=== PATIENT | female | born 1995 | race Caucasian/White ===

== ENCOUNTER 2019-11-06 21:45 | Inpatient (IN) | payer MEDICAID ==
[~2019-11-06] VITALS: Ht 152.4 cm; Wt 83.9 kg
[2019-11-06] MEDS ORDERED: TERBUTALINE SULFATE 1 MG/ML VIAL SUBCUT ONE (21:46)
[2019-11-07] MEDS: TERBUTALINE SULFATE 1 MG/ML VIAL SUBCUT PRN ×3 (00:20→00:24)
[2019-11-07] MEDS ORDERED: BETAMET ACET/BETAMET NA PH 30 MG/5 ML VIAL IM SCH (02:00)
[2019-11-07] MEDS ORDERED: DIPHENHYDRAMINE INJ 50 MG/ML VIAL IM ONE (10:00)
[2019-11-07] MEDS ORDERED: LR 1,000 ML IV ONE (17:26)
[2019-11-07] MEDS: LR 1,000 ML IV SCH (17:56)
[2019-11-07] MEDS: OXYTOCIN/0.9 % SODIUM CHLORIDE 1,000 ML IV SCH (17:56)
[2019-11-07 18:07] LABS: HEMATOCRIT 33.8 % (36-48); HEMOGLOBIN 11.3 g/dL (12.0-16.0); LYMPHOCYTES # (AUTO) 1.1 K/uL (1.0-5.5); LYMPHOCYTES % (AUTO) 9.9 % (20.5-51.5); MEAN CORPUSCULAR HEMOGLOBIN 30 pg (27-31); MEAN CORPUSCULAR HGB CONC 33 % (32-36); MEAN CORPUSCULAR VOLUME 89 fL (79.0-98.0); MONOCYTES # (AUTO) 0.3 K/uL (0.0-1.0); MONOCYTES % (AUTO) 2.4 % (1.7-9.3); NEUTROPHILS % (AUTO) 87.7 % (40.0-70.0); PLATELET COUNT (AUTO) 169 K/uL (130-430); RED BLOOD CELL COUNT(AUTO) 3.79 MIL/uL (4.2-6.2); WHITE BLOOD COUNT (AUTO) 11.4 K/uL (4.8-10.8)
[2019-11-07] MEDS ORDERED: AMPICILLIN SODIUM 2 GM in NS 100 ML IV ONE (19:45)
[2019-11-07 20:03] VITALS: BP_SYST 121
[2019-11-07] MEDS ORDERED: AMPICILLIN SODIUM 2 GM VIAL ONE (20:36)
[2019-11-07] MEDS ORDERED: AMPICILLIN SODIUM 1 GM VIAL ONE (23:52)
[2019-11-08] MEDS ORDERED: OXYTOCIN 10 UNIT/ML VIAL IM ONE
[2019-11-08] MEDS: LR 1,000 ML IV SCH (03:00)
[2019-11-08] MEDS ORDERED: AMPICILLIN SODIUM 1 GM VIAL ONE (04:00)
[2019-11-08] MEDS: AMPICILLIN SODIUM 1 GM in NS 50 ML IV SCH ×7 (04:00→19:53)
[2019-11-08] MEDS: MEPERIDINE HCL/PF 50 MG/ML AMP IM PRN ×2 (05:31→18:22)
[2019-11-08] MEDS: OXYTOCIN/0.9 % SODIUM CHLORIDE 1,000 ML IV SCH (17:10)
[2019-11-08] MEDS ORDERED: OXYTOCIN/0.9 % SODIUM CHLORIDE 1,000 ML IV ONE (22:54)
[2019-11-08] MEDS ORDERED: OXYTOCIN/0.9 % SODIUM CHLORIDE 1,000 ML IV SCH (22:54)
[2019-11-08] MEDS ORDERED: SENNOSIDES/DOCUSATE SODIUM 1 TAB TABLET(SENOKOT-S) PO PRN (23:00)
[2019-11-08] MEDS ORDERED: OXYCODONE/ACETAMINOPHEN 5-325 TABLET PO PRN ×2 (23:00)
[2019-11-08] MEDS ORDERED: WITCH HAZEL LEAF 1 MED.PAD MED.PAD TP PRN (23:00)
[2019-11-08] MEDS ORDERED: HYDROCORTISONE 0.5%, 28.35 GM TOPICAL CREAM TP PRN (23:00)
[2019-11-08] MEDS ORDERED: LANOLIN 7 GM OINT. TP PRN (23:00)
[2019-11-08] MEDS ORDERED: DERMOPLAST SPRAY TP PRN (23:00)
[2019-11-08] MEDS ORDERED: METHYLERGONOVINE MALEATE 0.2 MG TABLET PO PRN (23:00)
[2019-11-09] MEDS: IBUPROFEN 600 MG TABLET PO SCH ×4 (00:30→18:12)
[2019-11-09] MEDS: HYDROcodone/ACETAMIN 5-325 MG TAB (NORCO/ VICODIN) PO PRN ×3 (04:16→13:15)
[2019-11-09] MEDS: DOCUSATE SODIUM 100 MG CAPSULE PO PRN (05:39)
[2019-11-09 06:52] LABS: BASOPHILS % (AUTO) 0.1 % (0.0-2.0); HEMATOCRIT 29.6 % (36-48); HEMOGLOBIN 9.8 g/dL (12.0-16.0); LYMPHOCYTES # (AUTO) 2.1 K/uL (1.0-5.5); LYMPHOCYTES % (AUTO) 16.8 % (20.5-51.5); MEAN CORPUSCULAR HEMOGLOBIN 30 pg (27-31); MEAN CORPUSCULAR HGB CONC 33 % (32-36); MEAN CORPUSCULAR VOLUME 90 fL (79.0-98.0); MONOCYTES # (AUTO) 0.8 K/uL (0.0-1.0); MONOCYTES % (AUTO) 6.3 % (1.7-9.3); NEUTROPHILS # (AUTO) 9.6 K/uL (1.8-7.7); NEUTROPHILS % (AUTO) 76.8 % (40.0-70.0); PLATELET COUNT (AUTO) 144 K/uL (130-430); RED BLOOD CELL COUNT(AUTO) 3.29 MIL/uL (4.2-6.2); RED CELL DISTRIBUTION WIDTH 16.1 % (9.0-15.0); WHITE BLOOD COUNT (AUTO) 12.4 K/uL (4.8-10.8)
[2019-11-09] MEDS ORDERED: PEG 400/HYPROMELLOSE/GLYCERIN 15 ML DROPS OP PRN (18:00)
[2019-11-09] MEDS ORDERED: CIPROFLOXACIN HCL 0.3% EYE DRP 2.5 ML DROPS OP ONE (18:30)
[2019-11-09] MEDS: CIPROFLOXACIN HCL 0.3% EYE DRP 2.5 ML DROPS OP SCH (21:16)
[2019-11-10] MEDS: IBUPROFEN 600 MG TABLET PO SCH ×4 (00:04→17:38)
[2019-11-10] MEDS: DOCUSATE SODIUM 100 MG CAPSULE PO PRN ×2 (00:05→05:55)
[2019-11-10] MEDS: CIPROFLOXACIN HCL 0.3% EYE DRP 2.5 ML DROPS OP SCH ×2 (08:36→13:21)
[2019-11-10] MEDS: HYDROcodone/ACETAMIN 5-325 MG TAB (NORCO/ VICODIN) PO PRN ×2 (09:43→16:17)
== END 2019-11-10 19:05 | disposition home or self-care (01) | DRG 560 ==
LOC: OBSVTOIN 21:45 → SPU 21:45
PROVIDERS: ADMIT Obstetrics & Gynecology; ATTEND Obstetrics & Gynecology
PROC: 10D07Z6 Extraction of Products of Conception, Vacuum, Via Natural or Artificial Opening (ICD-10-PCS; principal; 2019-11-08)
DX: O60.14X0 Preterm labor third trimester with preterm delivery third trimester, not applicable or unspecified (principal); Z37.0 Single live birth; Z3A.36 36 weeks gestation of pregnancy
CPT/HCPCS: 36415; 59899; 81002-TC; 85025; 86592; 86886; 86900; 86901; 94760; J0290; J0702; J1200; J2175; J2590; J3105; J7120